=== PATIENT | male | born 1980 ===

== ENCOUNTER 2017-03-25 16:20 | Inpatient (IN) | payer BC ==
[2017-03-25] MEDS ORDERED: Adenosine 6 MG/2 ML VIAL ONE ×2 (16:30→16:40)
[2017-03-25] MEDS ORDERED: PROPOFOL 20 ML ONE (16:46)
[2017-03-25] MEDS ORDERED: Propofol 500 MG/50 ML VIAL ONE (16:46)
[2017-03-25 17:08] LABS: #Basophils 0.1 thou/uL (0.0-0.2); #Eosinphils 0.1 thou/uL (0.0-0.7); #Lymphocytes 3.6 thou/uL (1.20-3.40); #Monocytes 0.9 thou/uL (0.11-0.59); #Neutrophils 7.1 thou/uL (1.40-6.50); %Basophils 1.1 % (0.0-1.0); %Lymphocytes 30.2 % (21.0-51.0); %Monocytes 7.8 % (0.0-10.0); Hemoglobin 18.6 g/dL (14.0-18.0); Mean Corpuscular Hemoglobin 30.2 pg (27.0-31.0); Mean Corpuscular Volume 91.3 fl (80.0-94.0); Mean Platelet Volume 8.2 fL (7.4-10.4); Platelet Count 353 thou/uL (130-400); RBC Distribution Width 12.8 % (11.5-14.5); Red Blood Cell (RBC) Count 6.18 mill/uL (4.70-6.10); White Blood Cell (WBC) Count 11.8 thou/uL (4.8-10.8)
[2017-03-25 17:28] LABS: ALT (SGPT) 57 U/L (8-55); AST (SGOT) 45 U/L (5-34); Albumin 4.8 g/dL (3.5-5.0); Alkaline Phosphatase 64 U/L (40-150); Anion Gap 18 mmol/L (10-20); BUN (Urea Nitrogen) 19 mg/dL (8.9-20.6); Bilirubin, Total 0.7 mg/dL (0.2-1.2); CK (CPK) 171 U/L (30-200); Calc. Creatinine Clearance 0 mL/min (70-130); Calcium 10.1 mg/dL (7.8-10.44); Carbon Dioxide 26 mmol/L (22-29); Chloride 98 mmol/L (98-107); Estimated GFR-MDRD 63; Globulin 4.1 g/dL (2.4-3.5); Glucose 111 mg/dL (70-105); Potassium 3.8 mmol/L (3.5-5.1); Protein, Total 8.9 g/dL (6.0-8.3); Sodium 138 mmol/L (136-145)
[2017-03-25 17:33] LABS: CKMB 1.7 ng/mL (0-6.6); Troponin I 0.054 ng/mL (< 0.028)
--- NOTE | 2017-03-25 17:40 | RAD ---
CHEST ONE VIEW 03/25/17 HISTORY: Chest pain. COMPARISON: None. FINDINGS: Lungs are clear. No pneumothorax or effusion. Cardiac silhouette and mediastinal contours are within normal limits. Defibrillator pad projects over the right hemithorax. IMPRESSION: No acute intrathoracic abnormality. POS: [facility]
[2017-03-25] MEDS ORDERED: Acetaminophen 325 MG TAB PO PRN (18:54)
[2017-03-25] MEDS ORDERED: Nitroglycerin 0.4 MG TAB (25 Tab Bottle) PO PRN (18:54)
[2017-03-25 19:20] LABS: Acetaminophen Less than 6.0 mcg/mL (10.0-30.0); Alcohol Less than 10 mg/dL (Less than 10); Salicylate Less than 8.0 mg/dL (15.0-30.0)
[2017-03-25 20:30] LABS: Troponin I 0.222 ng/mL (< 0.028)
[2017-03-25] MEDS ORDERED: Aspirin 325 MG TAB PO SCH (20:45)
[2017-03-25] MEDS ORDERED: Metoprolol Tartrate 25 MG TAB PO SCH (21:00)
[2017-03-25] MEDS ORDERED: Famotidine 20 MG TAB ONE (22:21)
[2017-03-25] MEDS ORDERED: Aspirin 325 MG TAB ONE (22:21)
[2017-03-25 22:51] LABS: Amphetamine Not Detected (NotDetected); Barbiturates Screen Not Detected (NotDetected); Benzodiazepine Screen Not Detected (NotDetected); Cocaine Metabolite Screen Not Detected (NotDetected); Medtox Control Line Valid? VALID (VALID); Medtox Reader # READER 1; Methadone Not Detected (NotDetected); Methamphetamine Not Detected (NotDetected); Opiate Screen Not Detected (NotDetected); Oxycodone Screen Not Detected (NotDetected); Phencyclidine (PCP) Not Detected (NotDetected); THC/Cannabinoid Screen Not Detected (NotDetected); Tricyclic Screen Not Detected (NotDetected)
--- NOTE | 2017-03-25 23:10 | HP ---
REASON FOR ADMISSION: SVT status post electrical cardioversion. HISTORY OF PRESENT ILLNESS: The patient states he was playing golf and developed chest tightness nehemiah und 01:45 p.m. He also had some left shoulder pain. This was not getting better up until 03:30 p.m. Then, he drove himself to emergency room to find out if he has got flu. On arrival, the patient wa s in SVT with the heart rates going up to 222. He was given 2 doses of adenosine 12 mg x2, both same dose, which did not seem to help. Finally, the patient was cardioverted. Initially, 150 J was appl ied and later 200 J was applied to get him back to sinus rhythm. Upon conversion, he was in normal s inus rhythm at 95 beats per minute. Currently, he is comfortable with no chest pain, shortness of br eath, or palpitation. He has no complaint so far of chest pain at present. PAST MEDICAL AND SURGICAL HISTORY: Seasonal allergies, wisdom tooth removed. CURRENT MEDICATIONS: Claritin p.r.n., has not taken any in the recent weeks. ALLERGIES: No known drug allergies. PERSONAL HISTORY: Does not abuse alcohol or drugs. No history of smoking. 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 FAMILY HISTORY: Both parents are healthy. He has a living brother who is healthy. He lives with hi s . REVIEW OF SYSTEMS: The following complete review of systems was negative, unless otherwise mentioned in the HPI or below: Constitutional: Weight loss or gain, ability to conduct usual activities. Skin: Rash, itching. Eyes: Double vision, pain. ENT/Mouth: Nose bleeding, neck stiffness, pain, tenderness. Cardiovascular: Palpitations, dyspnea on exertion, orthopnea. Respiratory: Shortness of breath, wheezing, cough, hemoptysis, fever or night sweats. Gastrointestinal: Poor appetite, abdominal pain, heartburn, nausea, vomiting, constipation, or diarr hea. Genitourinary: Urgency, frequency, dysuria, nocturia. Musculoskeletal: Pain, swelling. Neurologic/Psychiatric: Anxiety, depression. Allergy/Immunologic: Skin rash, bleeding tendency. PHYSICAL EXAMINATION: GENERAL: The patient is a 36-year-old male who is currently not in any acute distress. VITAL SIGNS: Blood pressure on arrival was 80/64 with heart rate of 227. Currently, blood pressure is 136/74, heart rate is 90 per minute, respiratory rate 18 per minute, temperature 97.3 degrees Fahr enheit, saturating 97% on room air. NECK: Supple. No elevated JVD. HEENT: Eyes, extraocular muscles intact. Pupils reacting to light. Oral cavity, mucous membranes a re dry. No exudates or congestion. CARDIOVASCULAR SYSTEM: S1, S2 heard. Regular rhythm. RESPIRATORY SYSTEM: Air entry 1+ bilateral. No rales or rhonchi. ABDOMEN: Soft. Bowel sounds are heard. No tenderness, rigidity, or guarding. EXTREMITIES: No peripheral edema or calf tenderness. VASCULAR: Peripheral pulses 2+ bilateral. No ischemic ulcerations or gangrene. CENTRAL NERVOUS SYSTEM: No gross focal deficit seen. The patient is alert, awake, oriented well. PSYCHIATRIC SYSTEM: The patient's mood is euthymic. No hallucinations or delusions. LABORATORY DATA: EKG on arrival showed broad-complex SVT at 227 beats per minute. There is also RBB B seen on that. Status post electrical cardioversion. His EKG shows normal sinus rhythm at 95 beats per minute. His QRS is normal duration after electrical cardioversion. White count of 11, H and H 18 and 56, platelet count 353 with 60% neutrophils, MCV is 91. Electrolytes are stable. BUN 19, cre atinine 1.29, glucose 111, AST 45, ALT 57, alk phos 64. Troponin I is 0.05. Albumin is 4.8. Chest x-ray done shows no acute cardiopulmonary abnormalities. CLINICAL IMPRESSION AND PLAN: The patient will be under observation on telemetry for an episode of s upraventricular tachycardia with hypotension on arrival and chest pain. He has had electrical cardio version done with 2 shocks given, initially 150 J and another at 200 J. He has indeterminate troponi n, likely demand ischemia from supraventricular tachycardia. We will place him on Cardizem CD 120 mg twice daily. He is also clinically dry and we will place him on normal saline at 80 mL per hour. Pina Hill has been called by Dr. Edward Hall in the ER. We will obtain free T3, free T4, TSH, ec ho with 2D Doppler, and lipid profile in the morning. The patient is already feeling comfortable at present. We will see the trend of his troponin with 2 more sets. He will also be on a full-dose asp irin for now. We will continue to closely monitor him for any hemodynamic compromise. No history of any congenital heart disease when he was born. His brother is also healthy.
[2017-03-25 23:17] VITALS: BMI 27.3
[2017-03-25] MEDS: Famotidine 20 MG TAB PO SCH (23:32)
[2017-03-25] MEDS: Sodium Chloride 0.9% 1,000 ML IV SCH (23:34)
[2017-03-25 23:41] LABS: Troponin I 0.384 ng/mL (< 0.028)
[2017-03-26 03:46] LABS: ALT (SGPT) 42 U/L (8-55); AST (SGOT) 36 U/L (5-34); Albumin 3.4 g/dL (3.5-5.0); Alkaline Phosphatase 40 U/L (40-150); Anion Gap 11 mmol/L (10-20); BUN (Urea Nitrogen) 20 mg/dL (8.9-20.6); Bilirubin, Total 0.9 mg/dL (0.2-1.2); Calc. Creatinine Clearance 140 mL/min (70-130); Calcium 8.4 mg/dL (7.8-10.44); Carbon Dioxide 25 mmol/L (22-29); Cardiac Risk 3.5 (Less than 4.5); Chloride 106 mmol/L (98-107); Cholesterol 165 mg/dl (< 200 Desired); Estimated GFR-MDRD Greater than 90; Globulin 2.9 g/dL (2.4-3.5); Glucose 90 mg/dL (70-105); HDL Cholesterol 47 mg/dL (>60 Neg Risk); LDL Cholesterol, Calculated 97 mg/dL; Potassium 4.4 mmol/L (3.5-5.1); Protein, Total 6.3 g/dL (6.0-8.3); Sodium 138 mmol/L (136-145); Triglycerides 107 mg/dL (Less than 150)
[2017-03-26 03:48] LABS: #Eosinphils 0.1 thou/uL (0.0-0.7); #Lymphocytes 3.1 thou/uL (1.20-3.40); #Monocytes 0.8 thou/uL (0.11-0.59); #Neutrophils 6.7 thou/uL (1.40-6.50); %Basophils 0.3 % (0.0-1.0); %Eosinophils 0.7 % (0.0-10.0); %Lymphocytes 29.1 % (21.0-51.0); %Monocytes 7.5 % (0.0-10.0); %Neutrophils 62.4 % (42.0-75.0); Hemoglobin 14.3 g/dL (14.0-18.0); Mean Corpuscular HGB CONC 33.1 g/dL (32.0-36.0); Mean Corpuscular Hemoglobin 30.2 pg (27.0-31.0); Mean Corpuscular Volume 91.3 fl (80.0-94.0); Mean Platelet Volume 8.1 fL (7.4-10.4); Platelet Count 209 thou/uL (130-400); RBC Distribution Width 12.5 % (11.5-14.5); Red Blood Cell (RBC) Count 4.74 mill/uL (4.70-6.10); White Blood Cell (WBC) Count 10.7 thou/uL (4.8-10.8)
[2017-03-26 04:12] LABS: Thyroid Stimulating Hormone 3.7425 uIU/mL (0.35-4.94)
[2017-03-26 04:59] LABS: Troponin I 0.359 ng/mL (< 0.028)
[2017-03-26 05:03] LABS: Free T4 (Free Thyroxine) 0.94 ng/dL (0.70-1.48)
[2017-03-26] MEDS: Aspirin 325 MG TAB PO SCH (08:52)
[2017-03-26] MEDS: Famotidine 20 MG TAB PO SCH ×2 (08:52→21:15)
[2017-03-26] MEDS: Enoxaparin Sodium 40 MG/0.4 ML SYRINGE SC SCH (08:55)
[2017-03-26] MEDS: Sodium Chloride 0.9% 1,000 ML IV SCH (12:18)
--- NOTE | 2017-03-26 15:49 | EKG ---
Test Reason : Blood Pressure : / mmHG Vent. Rate : 095 BPM Atrial Rate : 095 BPM P-R Int : 158 ms QRS Dur : 090 ms QT Int : 368 ms P-R-T Axes : 056 050 -09 degrees QTc Int : 462 ms Normal sinus rhythm T wave abnormality, consider inferior ischemia Abnormal ECG #2 Confirmed by BRIDGET CRUZ, MARSHAL ([id number]), editor managing newspaper JOSE M ETIENNE ([id number]) on 03/26/2017 3:49:28 PM Referred By: Confirmed By:MARSHAL GILL MD
--- NOTE | 2017-03-26 15:49 | EKG ---
Test Reason : Blood Pressure : / mmHG Vent. Rate : 227 BPM Atrial Rate : 115 BPM P-R Int : 000 ms QRS Dur : 186 ms QT Int : 270 ms P-R-T Axes : 000 259 206 degrees QTc Int : 525 ms Supraventricular tachycardia with occasional Premature ventricular complexes Right bundle branch block Inferior infarct , age undetermined Anterolateral infarct , age undetermined Abnormal ECG #1 Confirmed by MARSHAL GILL MD ([id number]), slot editor JOSE M ETIENNE ([id number]) on 03/26/2017 3:49:04 PM Referred By: Confirmed By:MARSHAL GILL MD
--- NOTE | 2017-03-26 16:36 | CON ---
DATE OF CONSULTATION: 03/26/2017 HISTORY OF PRESENT ILLNESS: The patient is a pleasant 36-year-old gentleman who presents for evaluation of rapid irregular heart rhythm. The patient has no previous cardiac history. Yesterday, the patient was playing golf when he suddenly felt palpitations. He felt mid sternal chest discomfort. This was a persistent discomfort. The patient presented to the emergency room with dyspnea. . He was noted to have a very rapid heart rate and apparently became hypotensive. The patient was cardioverted. The patient denies having any present chest discomfort or palpitations. PAST MEDICAL HISTORY: None. PAST SURGICAL HISTORY: None. SOCIAL HISTORY: Nonsmoker. No excessive use of alcohol. ALLERGIES: None. MEDICATIONS: Claritin 10 mg daily. FAMILY HISTORY: No strong family history of heart disease. REVIEW OF SYSTEMS: Ten-point system otherwise unremarkable. No history of easy bruising or bleeding. Ten-point system otherwise unremarkable. PHYSICAL EXAMINATION: GENERAL: Thin gentleman in no acute distress. Blood pressure 110/69. NECK: No jugular venous distention, no carotid bruits. LUNGS: Clear to auscultation. HEART: Regular rate and rhythm, normal S1, S2, no murmurs. ABDOMEN: Soft, nontender. EXTREMITIES: No edema. SKIN: Warm and dry. NEUROLOGIC: Nonfocal. VASCULAR: Radial pulses 2+. LABORATORY DATA: Sodium 138, potassium 4.4, chloride 106, bicarbonate 25, BUN 20, creatinine 0.84, troponin was 0.359. His white blood cell count is 10.7, hemoglobin 14.3, hematocrit 43.3, and platelets are 209,000. His EKG revealed rapid narrow complex tachycardia, possibly ventricular tachycardia. Follow up EKG #2 revealed normal sinus rhythm, nonspecific T-wave abnormality. IMPRESSION: 1. Wide complex tachycardia, probable ventricular tachycardia. 2. Chest pain, atypical. This gentleman presented with ventricular tachycardia, probable ventricular tachycardia. The patient will need to undergo EPS consultation. We will check the patient's echocardiogram and perform a stress test to make sure there is no evidence of ischemia. We will follow this patient with you through his hospitalization. MACIEJ
--- NOTE | 2017-03-26 17:47 | PDOC.PN ---
- Subjective Encounter Start Date: 03/26/17 Encounter Start Time: 17:46 Mr. Lombardo was seen in follow-up for Wide complex tachycardia. He does not have any complaints t the moment. He denies chest pain or dyspnea. - Objective Resuscitation Status: Resuscitation Status FULL:Full Resuscitation MAR Reviewed: Yes Vital Signs & Weight: Vital Signs (12 hours) Temp Pulse Resp BP Pulse Ox 03/26/17 15:25 98.2 F 70 16 121/57 L 95 03/26/17 11:33 98.4 F 74 16 118/70 95 03/26/17 07:33 98.1 F 67 16 03/26/17 07:24 98.1 F 67 16 110/69 94 L Weight Weight 179 lb 9.6 oz I&O: 03/25/17 03/26/17 03/27/17 06:59 06:59 06:59 Intake Total 527 Balance 527 Result Diagrams: 03/26/17 03:10 03/26/17 03:10 Phys Exam - Physical Examination HEENT: PERRLA Respiratory: no wheezing, no rales, no rhonchi, clear to auscultation bilateral Cardiovascular: RRR, no significant murmur, no rub Gastrointestinal: soft, non-tender, positive bowel sounds Musculoskeletal: no edema Dx/Plan (1) Wide-complex tachycardia Code(s): I47.2 - VENTRICULAR TACHYCARDIA Status: Acute (2) Abnormal EKG Code(s): R94.31 - ABNORMAL ELECTROCARDIOGRAM [ECG] [EKG] Status: Acute - Plan * Wide Complex Tachycardia- concerning for Ventricular Tachycardia- Cardiology work-up in progress * Echo is pending as well as stress test. * EP evaluation on Tuesday.
[2017-03-27 05:27] LABS: Cardiac Risk 3.3 (Less than 4.5)
[2017-03-27] MEDS: Aspirin 325 MG TAB PO SCH (12:05)
[2017-03-27] MEDS: Enoxaparin Sodium 40 MG/0.4 ML SYRINGE SC SCH (12:05)
[2017-03-27] MEDS: Famotidine 20 MG TAB PO SCH ×2 (12:05→20:51)
--- NOTE | 2017-03-27 13:53 | NM ---
MYOCARDIAL PERFUSION SCAN: TECHNIQUE: The patient was given 9.4 millicuries of technetium sestamibi for rest imaging and 29 millicuries for stress imaging. The patient was stressed with exercise according to the Joe protocol, and 89% of the maximal age-pr edicted heart rate was attained. The left ventricle is imaged with SPECT imaging, and CT attenuation is obtained. FINDINGS: Normal activity throughout the left ventricle on stress and rest images. No evidence of reversible i schemia. Normal wall motion. Ejection fraction recorded at 71%. IMPRESSION: Negative sestamibi stress test. POS: [facility]
--- NOTE | 2017-03-27 16:09 | PDOC.PN ---
- Subjective Encounter Start Date: 03/27/17 Encounter Start Time: 16:07 Mr. Lombardo was seen today in follow-up. He does not have any complaints today. He denies chest pain or dyspnea. - Objective Resuscitation Status: Resuscitation Status FULL:Full Resuscitation MAR Reviewed: Yes Vital Signs & Weight: Vital Signs (12 hours) Temp Pulse Resp BP Pulse Ox 03/27/17 11:45 98.1 F 74 16 118/79 97 03/27/17 07:30 97.8 F 69 20 Weight Weight 179 lb 14.4 oz I&O: 03/26/17 03/27/17 03/28/17 06:59 06:59 06:59 Intake Total 527 1200 300 Output Total 2300 Balance 527 -1100 300 Result Diagrams: 03/26/17 03:10 03/26/17 03:10 Phys Exam - Physical Examination HEENT: PERRLA Respiratory: no wheezing, no rales, no rhonchi, clear to auscultation bilateral Cardiovascular: RRR, no significant murmur, no rub Gastrointestinal: soft, non-tender, no distention Musculoskeletal: no edema Dx/Plan (1) Wide-complex tachycardia Code(s): I47.2 - VENTRICULAR TACHYCARDIA Status: Acute (2) Abnormal EKG Code(s): R94.31 - ABNORMAL ELECTROCARDIOGRAM [ECG] [EKG] Status: Acute - Plan * Wide Complex Tachycardia- suspected to be VTach- Await EP evaluation in the AM * Echo- normal * Stress test was negative.
[2017-03-28] MEDS: Famotidine 20 MG TAB PO SCH ×2 (08:45→21:45)
[2017-03-28] MEDS: Aspirin 325 MG TAB PO SCH ×2 (08:45→09:25)
[2017-03-28] MEDS: Enoxaparin Sodium 40 MG/0.4 ML SYRINGE SC SCH (09:24)
--- NOTE | 2017-03-28 11:22 | CON ---
DATE OF CONSULTATION: 03/28/2017 DICTATED BY: Denise Danielson NP CONSULTING PHYSICIAN: Dr. Emir Hill REASON FOR ELECTROPHYSIOLOGY CONSULTATION: Sustained, wide complex tachycardia , requiring Cardioversion. HISTORY OF PRESENT ILLNESS: This is a very pleasant 36-year-old gentleman who presented to the emergency room on the with some dyspnea and mild chest discomfort. Prior to presenting to the emergency room, he had been out playing golf and started to have some mild chest discomfort as well as left shoulder discomfort around 2 in the afternoon. Initially he thought he was coming down with the flu; however, the discomfort persisted and was enough to drive him to the emergency room. Upon presentation, it was found that he did have a very rapid heart rate over 200 beats per minute. Chemical cardioversion with adenosine was attempted twice without success. Eventually, the patient was cardioverted externally, requiring 2 shocks. The patient denies having had any episodes like this in the past. He leads an active lifestyle and has not had any palpitations or rapid heart beating in the past. He did not pass out. PAST MEDICAL HISTORY: None. PAST SURGICAL HISTORY: None. 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 He is a nonsmoker. He reports no illicit drug use, and moderate alcohol consumption. ALLERGIES: No known drug allergies, occasional seasonal allergies. MEDICATIONS: Claritin 10 mg as needed for seasonal allergies. FAMILY HISTORY: Negative for sudden cardiac or coronary artery disease with early onset before the age of 55. REVIEW OF SYSTEMS: CONSTITUTIONAL: The patient denies fevers, chills, malaise, night sweats and/ or recent weight fluctuations HEENT: The patient denies vision or speech changes, difficulty swallowing or swelling in the neck. CARDIOVASCULAR: As per HPI. PULMONARY: The patient denies recent cough or respiratory illness, productive sputum, or blood in his sputum. The patient did have some dyspnea on presentation to the emergency room, which has since resolved. GASTROINTESTINAL: Negative for nausea, vomiting, diarrhea or blood in stool. : Negative for frequency, hesitancy or difficulty urinating. Negative for blood in the urine. Rest of the 12 point review of systems are negative. PHYSICAL EXAMINATION: GENERAL: The patient is a well-nourished fit gentleman in no acute distress. His speech is clear and his affect is appropriate. HEENT: Sclerae are anicteric. Head is normocephalic, atraumatic. There are no carotid bruits. NECK: Supple, his trachea is midline. There is no lymphadenopathy or thyromegaly. He has adequate dentition. Mucous membranes are moist. LUNGS: Clear to auscultation bilaterally without wheezes, crackles or rhonchi. There is no accessory muscle use noted. CARDIOVASCULAR: Heart rate is a regular rate and rhythm without murmur, rub or gallop. EXTREMITIES: Warm and dry to touch without evidence of clubbing, cyanosis or edema. ABDOMEN: Soft and nontender without hepatosplenomegaly or masses. Hepatojugular reflex is negative. NEUROLOGIC: Grossly intact and the patient is nonfocal without deficit. DATABASE: Hematology on 03/26/2017 - WBC 10.7, hemoglobin 14.3, hematocrit 43.3 , platelet count is 209. Chemistry from 03/26/2017 - Sodium 138, potassium 4.4 , chloride 106, carbon dioxide 25, BUN 20, creatinine 0.84. Serial troponins were conducted x3 and were slightly elevated with a peak at 0.384 which has since trended down. Toxicology screen is performed and was negative. Chest x- ray on 03/25/2017 was within normal limits without any acute findings. Nuclear stress test performed on 03/27/2017 was negative with an ejection fraction recorded at 71%. There was no evidence of reversible ischemia and there was normal wall motion. EKG review; rhythm strip from the emergency room was reviewed and revealed a wide complex rhythm with a right bundle branch block and morphology. It is questionable for SVT versus ventricular tachycardia, however, the morphology is unclear at this point. Since cardioversion, telemetry strips show sinus rhythm and sinus bradycardia. IMPRESSION: 1. Wide complex tachycardia, ventricular tachycardia vs SVT with aberation. 2. Normal LVEF, no evident structural heart disease. 2. Atypical chest pain. The patient has a functionally normal heart and this is a fairly abnormal presentation rapid WCT RB, Right-superrior axis in morphology. To better evaluate the conduction system and possible arrhythmias present, it was recommended that the patient undergo EP study later today. In particular I want to rule out fascicular VT as a possibility. This was discussed with the patient. The risks include damage to the vein, hematoma, damage or perforation of the heart requiring additional chest tube placement for drainage and possible surgical correction. The patient verbalizes understanding of these risks and wishes to proceed with the procedure, with the understanding that depending on findings at the EP study, he may require ablation for treatment of any undiscovered arrhythmias. The patient is well researched and is well informed. He has had a chance to ask questions, all of which were answered. He wishes to pursue EP study with possible ablation at our earliest convenience. Thank you for allowing us to participate in this patient's care. We will follow the patient through his hospitalization. MACIEJ
[2017-03-28] MEDS ORDERED: Heparin 10,000 UNITS/1 ML VIAL ONE (14:12)
[2017-03-28] MEDS ORDERED: Midazolam HCl 2 mg/2 ml Vial ONE (14:50)
[2017-03-28] MEDS ORDERED: Fentanyl 100 MCG/2 ML VIAL ONE (14:50)
[2017-03-28] MEDS ORDERED: Propofol 500 MG/50 ML VIAL ONE (15:15)
[2017-03-28] MEDS ORDERED: Isoproterenol 0.2 MG/1 ML AMP ONE (15:37)
[2017-03-28] MEDS ORDERED: PHENYLEPHRINE-NS 100 MCG/ML 10 ML SYRINGE ONE (17:15)
[2017-03-28] MEDS ORDERED: Dexamethasone 20 MG/5 ML VIAL ONE (17:15)
[2017-03-28] MEDS ORDERED: ePHEDrine/0.9% NaCl/PF SYRINGE 50 mg/10 ml ONE (17:15)
[2017-03-28] MEDS ORDERED: Bisacodyl 5 MG TAB PO PRN (18:14)
[2017-03-28] MEDS ORDERED: Silver Sulfadiazine 1% Cream 50 GM JAR TOP PRN (18:14)
[2017-03-28] MEDS ORDERED: Bisacodyl 10 MG SUPP PR PRN (18:14)
[2017-03-28] MEDS ORDERED: Mag-Al 1200 mg/1200 mg/30 ML UDCUP PO PRN (18:14)
[2017-03-28] MEDS ORDERED: Temazepam 15 MG CAP PO PRN (18:14)
[2017-03-28] MEDS ORDERED: Ondansetron HCl/PF 4 MG/2 ML Vial IVP PRN (18:14)
[2017-03-28] MEDS ORDERED: diphenhydrAMINE 25 MG CAP PO PRN (18:14)
[2017-03-28] MEDS ORDERED: traMADol HCl 50 MG TAB PO PRN (18:14)
[2017-03-28] MEDS ORDERED: Acetaminophen 325 MG TAB PO PRN (18:14)
[2017-03-28] MEDS ORDERED: Nitroglycerin 0.4 MG TAB (25 Tab Bottle) SL PRN (18:14)
--- NOTE | 2017-03-28 18:22 | PDOC.EVN ---
Event Note - Event Note Event Note: Mr. Lombardo has been in procedure today. All vitals stable. Await further recommendations from EP.
--- NOTE | 2017-03-29 07:06 | CCL ---
DATE OF PROCEDURE: 03/28/2017 This is an electrophysiology study report. REFERRING PHYSICIAN: Dr. Hill. REASON FOR PROCEDURE: Mr. Lombardo is a 36-year-old man, who has presented with a wide complex tachycardia and evaluated for inducible arrhythmias. PROCEDURE: The patient received deep sedation per Anesthesia specialist. After adequate level of sedation achieved, the left femoral vein was prepped, draped, and anesthetized using subcutaneous lidocaine. The left femoral vein was cannulated x2. A 6- and an 8-Swazi short sheath was introduced. Through these a decapolar CS catheter was advanced to the CS position and octapolar 6- Swazi catheter was advanced to the right ventricular His bundle and the right atrial position. Pacing, mapping, and recording were performed in each location. After completion of the study, Isuprel was administered and study was repeated. FINDINGS: Baseline cycle length 780 milliseconds, sinus rhythm, QRS duration 80ms, QT 356 milliseconds. The sinus node recovery time is 1460ms with corrected sinus node recovery time of 500 milliseconds noted. AV Wenckebach cycle length was 340ms, with Isuprel, it was 220ms. Retrograde conduction was Wenckebach baseline of 620 milliseconds, with Isuprel it was 318 milliseconds. AV chadwick ERP was present, but no dual AV chadwick physiology was seen. Concentric retrograde VA conduction was seen. No evident accessory pathway was present. With isuprel and rapid atrial pacing, left bundle aberration was seen transiently only. Ventricular extrastimuli testing was performed at 600 and 400 milliseconds drivetrain and with up to 3 ventricular extrastimuli, which was decremented to the refractoriness, and it was repeated again on Isuprel. Different locations were used, basal septal and apical inferior pacing locations as well. With the aggressive testing, achieving VAERP on isuprel of 400/180/180/180 and even repeating this test at 400/170/170/170, we were not able to induce any ventricular arrhythmias either. Burst atrial pacing was repeated. On isuprel, were able to induce atrial fibrillation, which eventually was cardioverted back to sinus rhythm with 50- joule shock. CONCLUSION: 1. 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 2. No ventricular tachyarrhythmia or SVT is inducible. 3. Borderline abnormal sinus chadwick function noted. 4. No evidence of accessory pathway or dual AV chadwick physiology present. Plan is at this point is to go home on Verapamil. Consider repeat EP study after 2 week medication washout. POS: [facility]
[2017-03-29 08:32] VITALS: BP 111/69; TEMP 98.1
[2017-03-29] MEDS: Famotidine 20 MG TAB PO SCH (08:59)
[2017-03-29] MEDS ORDERED: Verapamil SR 120 MG TAB PO SCH (09:00)
[2017-03-29] MEDS: Aspirin 325 MG TAB PO SCH (09:00)
--- NOTE | 2017-03-29 11:37 | PDOC.PN ---
- Subjective Encounter Start Date: 03/29/17 Encounter Start Time: 11:36 Mr. Lombardo was seen today in follow-up. He does not have any complaints. - Objective Resuscitation Status: Resuscitation Status FULL:Full Resuscitation MAR Reviewed: Yes Vital Signs & Weight: Vital Signs (12 hours) Temp Pulse Resp BP Pulse Ox 03/29/17 08:31 98.1 F 81 20 111/69 94 L 03/29/17 08:00 98.1 F 81 20 03/29/17 04:00 83 18 106/64 Weight Weight 178 lb 3.2 oz I&O: 03/28/17 03/29/17 03/30/17 06:59 06:59 06:59 Intake Total 1010 Balance 1010 Result Diagrams: 03/26/17 03:10 03/26/17 03:10 Phys Exam - Physical Examination HEENT: PERRLA Respiratory: no wheezing, no rales, no rhonchi, clear to auscultation bilateral Cardiovascular: RRR, no significant murmur, no rub Gastrointestinal: soft, non-tender, positive bowel sounds Musculoskeletal: no edema Dx/Plan (1) Wide-complex tachycardia Code(s): I47.2 - VENTRICULAR TACHYCARDIA Status: Acute (2) Abnormal EKG Code(s): R94.31 - ABNORMAL ELECTROCARDIOGRAM [ECG] [EKG] Status: Acute - Plan * Ventricular Tachycardia- EP study results were noted * He will be discharged home on Cardizem 120mg a day.
--- NOTE | 2017-03-29 21:12 | DIS ---
DATE OF ADMISSION: 03/25/2017 DATE OF DISCHARGE: 03/29/2017 The patient does not have a primary care physician. DISCHARGE DISPOSITION: Home. PRIMARY DISCHARGE DIAGNOSES: 1. Ventricular tachycardia. 2. Seasonal allergies. DISCHARGE MEDICATIONS: Include verapamil SR 120 mg daily and Claritin 10 mg as needed. CODE STATUS: FULL CODE. ALLERGIES: No known drug allergies. PROCEDURES DONE DURING THE ADMISSION: The patient had a nuclear stress test, which was negative for any reversible ischemia. The patient also had an echocardiogram showing an ejection fraction was 55% -60%, normal left ventricular size and function, normal valvular structure. HOSPITAL COURSE: Mr. Lombardo is a pleasant 36-year-old gentleman, who presented to the emergency room wi th complaints of chest pain and tightness, which radiated to his left shoulder. Upon arrival to the ER, he was found to be in a wide complex tachycardia with a heart rate in 220s. It was discovered th at this was ventricular tachycardia. He was evaluated by Cardiology as well as Electrophysiology. U nfortunately, during the electrophysiology study, they were unable to induce the culprit rhythm. He will be discharged home on verapamil and the plan is for him to have a repeat EP study in the future after he has a medication washout. This will be arranged by Dr. Stone in the outpatient setting. The patient will follow up with his primary care physician in 1 week and also with Dr. Stone as he was in structed.
--- NOTE | 2017-04-22 16:31 | EKG ---
Test Reason : Blood Pressure : / mmHG Vent. Rate : 075 BPM Atrial Rate : 075 BPM P-R Int : 156 ms QRS Dur : 108 ms QT Int : 414 ms P-R-T Axes : 047 046 -37 degrees QTc Int : 462 ms Normal sinus rhythm Prolonged QT Abnormal ECG When compared with ECG of 25-MAR-2017 17:23, T wave inversion more evident in Inferior leads T wave inversion now evident in Lateral leads Confirmed by DR. Baljinder AJ ([id number]) on 04/22/2017 4:31:28 PM Referred By: ANNIE Confirmed By:DR. Baljinder AJ
--- NOTE | 2017-04-22 16:32 | EKG ---
Test Reason : Blood Pressure : / mmHG Vent. Rate : 088 BPM Atrial Rate : 088 BPM P-R Int : 152 ms QRS Dur : 098 ms QT Int : 380 ms P-R-T Axes : 050 117 -40 degrees QTc Int : 459 ms Normal sinus rhythm Left posterior fascicular block Abnormal ECG When compared with ECG of 28-MAR-2017 16:34, (Unconfirmed) Left posterior fascicular block is now Present T wave inversion now evident in Anterior leads Confirmed by DR. Baljinder AJ ([id number]) on 04/22/2017 4:31:53 PM Referred By: RANDY Confirmed By:DR. Baljinder AJ
--- NOTE | 2017-05-17 13:30 | STRESS ---
Acquisition Time: 2017-03-27 09:22:27 Total Exercise Time: 00:13:00 Test Indications: VENTRICULAR TACHYCARDIA Medications: Protocol: NAZARIO Max HR: 164 BPM 89% of Pred: 184 BPM Max BP: 126/074 mmHG Max Work Load: 17.1 METS THE PATIENT EXERCISED FOR 13:00 ON A NAZARIO PROTOCOL. PEAK HEART RATE= 160 BPM AND TARGET HEART RATE = 156 BPM. HE DID NOT DEVELOP CHEST PAIN. THERE WAS NON-DIAGNOSTIC ST DEPRESSION DUE TO BASELINE ABNORMALITY. AWAIT NUCLEAR IMAGES FOR DEFINITIVE DIAGNOSIS Confirmed by CARLO HDEZ ([id number]), editor trade journal HOWIE QUESADA ([id number]) on 05/17/2017 1:29:38 PM Referred By: Stevan HDEZ Confirmed By:CARLO HDEZ
== END 2017-03-29 12:30 | disposition home or self-care (01) | DRG 274 ==
LOC: ERS 16:20 → ERHOLD 17:54 → 2SW 22:57
PROVIDERS: ADMIT Internal Medicine; ATTEND Internal Medicine
PROC: 5A2204Z Restoration of Cardiac Rhythm, Single (ICD-10-PCS; principal; 2017-03-25)
PROC: 4A023FZ Measurement of Cardiac Rhythm, Percutaneous Approach (ICD-10-PCS; 2017-03-28)
PROC: 02K83ZZ Map Conduction Mechanism, Percutaneous Approach (ICD-10-PCS; 2017-03-28)
PROC: 4A0234Z Measurement of Cardiac Electrical Activity, Percutaneous Approach (ICD-10-PCS; 2017-03-28)
DX: I47.2 Ventricular tachycardia (principal); I95.9 Hypotension, unspecified; I24.8 Other forms of acute ischemic heart disease; J30.2 Other seasonal allergic rhinitis; R07.89 Other chest pain
CPT/HCPCS: 36415; 71045; 76942; 78452; 80053; 80061; 80306; 80307; 82553; 84439; 84443; 84481; 84484; 85025; 87633; 93005; 93010; 93017; 93306; 93620; 93623; 94760; 96361; 96374; 99152; A4216; A9500; C1730; C1769; J0153; J1100; J1644; J1650; J2250; J2704; J3010

== ENCOUNTER 2018-04-30 00:43 | Emergency (ER) | payer BC ==
[2018-04-30] MEDS ORDERED: Ketorolac Tromethamine 30 MG/ML VIAL ONE (01:31)
[2018-04-30] MEDS ORDERED: Metoclopramide HCl 10 MG/2 ML VIAL ONE (01:31)
[2018-04-30] MEDS ORDERED: diphenhydrAMINE 50 MG/ML VIAL ONE (01:31)
--- NOTE | 2018-04-30 07:40 | CT ---
PRELIMINARY REPORT/[facility]/EMERGENTY AFTER-HOURS PROCEDURE CT Head Without Contrast EXAM DATE/TIME: 04/30/2018 1:51 AM CLINICAL HISTORY: 37 years old, male; Pain; Headache; Patient HX: 37m presents with headache since tuesday. Patient repo rts pain started as tenderness to the right top of the head. Patient states pain feels like "jolts of lightning" to the right side of his head. Has tried nsaids and migraine medications he was just prescribed with no relief. Patient denies HX of headaches. No blurry vision. No light or sound sensit ivity. TECHNIQUE: Axial computed tomography images of the head/brain without contrast. COMPARISON: No relevant prior studies available. FINDINGS: Brain: Normal. No hemorrhage. No significant white matter disease. No edema. Ventricles: Normal. No ventriculomegaly. Bones/joints: Unremarkable. No acute fracture. Sinuses: Visualized sinuses are unremarkable. No acute sinusitis. Mastoid air cells: Visualized mastoid air cells are unremarkable. No mastoid effusion. Soft tissues: Unremarkable. IMPRESSION: No acute intracranial abnormality. Thank you for allowing us to participate in the care of your patient. Dictated and Authenticated by: Armani Hdz MD 04/30/2018 2:02 AM Central Time ([place]) FINAL REPORT EMERGENT AFTER HOURS CT OF THE BRAIN WITHOUT CONTRAST: FINDINGS/IMPRESSION: I agree with the findings and impression given in the preliminary report per [facility] physician. No suhas dence of acute intracranial abnormality. POS: [facility]
== END 2018-04-30 03:35 | disposition home or self-care (01) ==
LOC: ERS 00:43
DX: R51 Headache (principal); B02.9 Zoster without complications; I47.2 Ventricular tachycardia
CPT/HCPCS: 70450; 96365; 96375; J1200; J1885; J2765